=== PATIENT | female | born 1995 | race Caucasian/White ===

== ENCOUNTER 2021-09-26 17:55 | Emergency (ER) | payer SELFPAY ==
[2021-09-27 17:21] LABS: SARS-CoV-2 PCR by NAA DETECTED (NotDetected)
== END 2021-09-26 19:11 | disposition home or self-care (01) ==
LOC: ERS 17:55
DX: U07.1 COVID-19 (principal); I10 Essential (primary) hypertension; F17.210 Nicotine dependence, cigarettes, uncomplicated
CPT/HCPCS: 99283; U0003; U0005

== ENCOUNTER 2023-01-17 19:00 | Emergency (ER) | payer SELFPAY | END 2023-01-17 21:04 | disposition home or self-care (01) | LOC: ERS 19:00 | DX: R51.9 Headache, unspecified (principal); I10 Essential (primary) hypertension; F17.210 Nicotine dependence, cigarettes, uncomplicated | CPT/HCPCS: 70450; 93005 ==

== ENCOUNTER 2023-01-25 21:20 | Emergency (ER) | payer SELFPAY | END 2023-01-25 22:30 | disposition home or self-care (01) | LOC: ERS 21:20 | DX: F41.9 Anxiety disorder, unspecified (principal); R07.9 Chest pain, unspecified; I10 Essential (primary) hypertension; F17.290 Nicotine dependence, other tobacco product, uncomplicated | CPT/HCPCS: 93005 ==

== ENCOUNTER 2023-02-28 06:14 | Emergency (ER) | payer SELFPAY ==
[2023-02-28] MEDS ORDERED: Dexamethasone 10 MG/ML VIAL ONE (06:31)
[2023-02-28] MEDS ORDERED: Ibuprofen 800 MG TAB ONE (06:31)
== END 2023-02-28 06:39 | disposition home or self-care (01) ==
LOC: ERS 06:14
DX: J01.90 Acute sinusitis, unspecified (principal); I10 Essential (primary) hypertension; Z87.891 Personal history of nicotine dependence
CPT/HCPCS: 87081; 87430; 99283; J1100